=== PATIENT | female | born 1970 | race Hispanic/Latino ===

== ENCOUNTER 2022-10-31 10:46 | Outpatient (CLI) | payer OTHER, SELFPAY ==
--- NOTE | ~2022-10-31 | MR_ITS ---
MRI of the right knee Clinical history: Pain and stiffness Technique: Coronal proton density and proton density-weighted images, sagittal proton-density and T2 fat-sat images, and axial proton-density fat-saturated images were acquired. Findings: Anterior and posterior cruciate ligaments are intact. Medial collateral ligament and the la teral collateral ligament conflux are intact. Popliteus tendon is intact. There is a large radial tear at the posterior root/posterior horn of the medial meniscus. Possible chow perimposed horizontal cleavage tear of the body segment of the medial meniscus. Lateral meniscus is i ntact, without evidence of tear. Articular cartilage in the lateral compartment is well preserved. 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 There is patchy moderate chondromalacia patella, especially along the lateral f acet, with patchy mild/moderate chondromalacia of the femoral trochlea. Small tricompartmental osteop hytes are present. Extensor mechanism is intact. Small to moderate joint effusion is present. No significant Arriaga's cys t. Impression: Large radial tear at the posterior root/posterior horn the medial meniscus with questionable superimp osed horizontal cleavage tear of the body segment. Mild to moderate tricompartmental degenerative change, as above. Small to moderate joint effusion. Reviewed, dictated and finalized at location . Impression: Large radial tear at the posterior root/posterior horn the medial meniscus with questionable superimposed horizontal cleavage tear of the body segment. Mild to moderate tricompartmental degenerative change, as above. Small to moderate joint effusion.
--- NOTE | ~2022-10-31 | MR_ITS ---
MRI of the left knee Clinical history: Pain and stiffness Technique: Coronal proton density and proton density-weighted images, sagittal proton-density and T2 fat-sat images, and axial proton-density fat-saturated images were acquired. Findings: Anterior and posterior cruciate ligaments are intact. Medial collateral ligament and the la teral collateral ligament complex are intact. Popliteus tendon is intact. There is a large radial tear at the posterior root of the medial meniscus. No lateral meniscal tear i dentified. Articular cartilage in the lateral compartment is well preserved. There is moderate to high-grade cho ndromalacia of the medial compartment, especially towards the medial joint line. There is focal moder ate to high-grade chondral malacia along the medial patellar facet. There is focal moderate to high-g rade chondral lesion at the central aspect of the femoral trochlea. Tiny tricompartmental osteophytes are present. Extensor mechanism is intact. Small to moderate joint effusion is present. No significant Arriaga's cys t. Impression: Large radial tear at the posterior the medial meniscus. Moderate degenerative change of the medial compartment, and mild degenerative change of the lateral a nd patellofemoral compartments, as detailed above. Small to moderate joint effusion. Reviewed, dictated and finalized at location . Impression: Large radial tear at the posterior the medial meniscus. Moderate degenerative change of the medial compartment, and mild degenerative c hange of the lateral and patellofemoral compartments, as detailed above. Small to moderate joint effusion.
== END 2022-10-31 10:47 ==
LOC: GOSHIMG 11-01 13:44
PROVIDERS: PCP Orthopaedic Surgery; Visit Provider Orthopaedic Surgery
DX: S83.242A Other tear of medial meniscus, current injury, left knee, initial encounter (principal); X58.XXXA Exposure to other specified factors, initial encounter; M25.462 Effusion, left knee; M17.0 Bilateral primary osteoarthritis of knee
CPT/HCPCS: 73721